=== PATIENT | female | born 1935 | race Caucasian/White ===

== ENCOUNTER → 2023-04-03 | Outpatient (CLI) | payer MEDICARE, SELFPAY ==
--- OUTSIDE RECORDS SUMMARY | 2023-04-03 17:46 | XMS RPT_ITS | CCD ---
Author Name Unknown Address [address] [place] [address] Organization [facility] Care Team Providers Care Call Center Nurse Name Role Phone KIAN PERSONAL COMPUTER SPECIALIST-GLOBAL IMPLEMENTATION MANAGER, KRISS Primary Care Physician Edwin PT, Abbey Unavailable Unavailable SEFFENS PERSONAL COMPUTER SPECIALIST-GLOBAL IMPLEMENTATION MANAGER, KRISS Primary Care Unavai lable SEFFENS PERSONAL COMPUTER SPECIALIST-GLOBAL IMPLEMENTATION MANAGER, KRISS Attending Unavai lable SEFFEJEFF PERSONAL COMPUTER SPECIALIST-GLOBAL IMPLEMENTATION MANAGER, KRISS Primary Care Unavai lable NOEMI LEDESMA, PRECIOUS Olmos Attending Unavail able SEFFENS PERSONAL COMPUTER SPECIALIST-GLOBAL IMPLEMENTATION MANAGER, KRISS Attending Unavai lable SEFFENS PERSONAL COMPUTER SPECIALIST-GLOBAL IMPLEMENTATION MANAGER, KRISS Primary Care Unavai lable SEFFENS PERSONAL COMPUTER SPECIALIST-GLOBAL IMPLEMENTATION MANAGER, KRISS Primary Care Unavai lable SEFFENS PERSONAL COMPUTER SPECIALIST-GLOBAL IMPLEMENTATION MANAGER, KRISS Attending Unavai lable SEFFENS PERSONAL COMPUTER SPECIALIST-GLOBAL IMPLEMENTATION MANAGER, KRISS Primary Care Unavai lable SEFFENS PERSONAL COMPUTER SPECIALIST-GLOBAL IMPLEMENTATION MANAGER, KRISS Attending Unavai lable Allergies Allergy Classification Reported Allergen(s) Allergy Type Date of Onset Reaction(s) Facility (4 sources) Cephalexin; Translations: [cephalexin] Drug Allergy Severe diarrhea (finding) [facility] (4 sources) Ciprofloxacin; Translations: [ciprofloxacin] Drug Allergy Diarrhea (finding) [facility] (4 sources) metroNIDAZOLE; Translations: [metronidazole] Drug Allergy Diarrhea (finding) [facility] Medications Current Medications Medication Drug Class(es) Dates Sig (Normalized) Sig (Original) calcium carbonate 600 mg oral capsule (4 sources) Start: 08-26-2013 Calcarb 600 mg oral tablet Dose : 600 mg = 1 tab(s), Oral, BID, # 60 tab(s), 0 Refill(s) Start Date: 08/26/13 Status: Ordered Haylee-C 1000 mg oral tablet (4 sources) Start: 07-29-2019 Haylee-C 1000 mg oral tablet Dose : 1,000 mg = 1 tab(s), Oral, Daily, # 30 tab(s), 0 Refill(s) Start Date: 07/29/19 Status: Ordered fexofenadine hydrochloride 180 mg oral tablet (4 sources) Histamine-1 Receptor Antagonist Start: 10-19-2018 Cat 24 Hour Allergy oral tablet Dose : 180 mg = 1 tab(s), Oral, Daily, # 30 tab(s), 0 Refill(s) Start Date: 10/19/18 Status: Ordered 120 actuat fluticasone propionate 0.11 mg/actuat metered dose inhaler (8 sources) Corticosteroid Start: 05-16-2022 End: 09-13-2022 take 2 puff(s) by inhalation twice daily Flovent HFA 110 mcg/inh inhalation aerosol 2 puff(s), Inhalation, BID, # 3 EA, 3 Refill(s), Pharmacy: [id number], 162.4, cm, 05/16/22 13:06:00 EDT, Height, kg, 05/16/22 13:06:00 EDT, Dosing Weight Start Date: 05/16/22 Stop Date: 09/13/22 Status: Ordered Completed/Discontinued Medications Medication Drug Class(es) Dates Sig (Normalized) Sig (Original) erythromycin 0.005 mg/mg ophthalmic ointment (1 source) Macrolide, Macrolide Antimicrobial Start: 10-16-2021 End: 10-26-2021 erythromycin 0.5% ophthalmic ointment Dose = 1 dc, Eyes, both, QID, 1 dc = 0.5 inch, X 10 day(s), # 3.5 gram(s), 0 Refill(s), Right corneal abrasion Start Date: 10/16/21 Stop Date: 10/26/21 Status: Ordered Problems Active Problems Problem Classification Problem Date Documented Date Episodic/Chronic Abdominal pain (4 sources) Abdominal pain 11-06-2019 Episodic Asthma (4 sources) Asthma 10-19-2018 Chronic Cardiac dysrhythmias (2 sources) Cardiac arrhythmia, unspecified; Translations: [Cardiac arrhythmia, unspecified] Onset: 10-01-2021 Chronic Diverticulosis and diverticulitis (4 sources) Diverticulitis of sigmoid colon 09-17-2020 Chronic Esophageal disorders (4 sources) Gastroesophageal reflux disease 10-19-2018 Chronic Heart valve disorders (4 sources) Irregular heart beat 10-01-2021 Episodic Mycoses (4 sources) Candidiasis of skin 10-19-2018 Episodic Osteoporosis (4 sources) Osteoporosis 10-19-2018 Chronic Other ear and sense organ disorders (2 sources) Does use hearing aid 05-16-2022 Episodic Superficial injury; contusion (1 source) Injury of eye region; Translations: [Injury of conjunctiva and corneal abrasion without foreign body, right eye, initial encounter] Onset: 10-16-2021 Episodic Unclassified (4 sources) Diverticulitis 10-19-2018 Unclassified (2 sources) Mass of left lower quadrant of abdomen 05-16-2022 Unclassified (2 sources) Patient encounter status 05-16-2022 Urinary tract infections (8 sources) Acute cystitis; Translations: [Urinary tract infectious disease] 01-29-2019 Episodic Past or Other Problems Problem Classification Problem Date Documented Da te Episodic/Chronic Fever of unknown origin (2 sources) Fever, unspecified; Translations: [Fever, unspecified] Onset: 10-01-2021 Episodic Malaise and fatigue (2 sources) Other fatigue; Translations: [Other fatigue] Onset: 10-01-2021 Episodic Results Test Name Value Interpretation Reference Range Facil ity Vital Signs Date Time Vital Sign Value Performing Clinician Faci lity 10-16-2021 19:21-0400 Body temperature 98.42 [degF] PRECIOUS FRANKLIN MD [facility] 10-16-2021 19:21-0400 Diastolic blood pressure 82 mm[Hg] PRECIOUS FRANKLIN MD [facility] 10-16-2021 19:21-0400 Heart rate 88 /min PRECIOUS FRANKLIN MD [facility] 10-16-2021 19:21-0400 Mean blood pressure 119 mm[Hg] PRECIOUS LYREN-SONDLES MD [facility] 10-16-2021 19:21-0400 Respiratory rate 18 /min PRECIOUS FRANKLIN MD [facility] 10-16-2021 19:21-0400 Systolic blood pressure 192 mm[Hg] PRECIOUS FRANKLIN MD [facility] Encounters Encounter Date Encounter Type Care Provider Facility Start: 06-03-2022 End: 06-04-2022 ambulatory KRISS SEFFENS PERSONAL COMPUTER SPECIALIST-GLOBAL IMPLEMENTATION MANAGER Facility:B Start: 06-03-2022 End: 06-03-2022 Patient encounter procedure KRISS SEFFENS PERSONAL COMPUTER SPECIALIST-GLOBAL IMPLEMENTATION MANAGER [facility] Start: 05-30-2022 End: 05-31-2022 ambulatory KRISS SEFFENS PERSONAL COMPUTER SPECIALIST-GLOBAL IMPLEMENTATION MANAGER Facility:B Start: 05-30-2022 End: 05-30-2022 Patient encounter procedure KRISS SEFFENS PERSONAL COMPUTER SPECIALIST-GLOBAL IMPLEMENTATION MANAGER [facility] Start: 10-16-2021 End: 10-16-2021 Emergency department patient visit KRISS SEFFENS PERSONAL COMPUTER SPECIALIST-GLOBAL IMPLEMENTATION MANAGER Facility:B Start: 10-16-2021 End: 10-16-2021 Emergency department patient visit PRECIOUS FRANKLIN MD [facility] Start: 10-01-2021 End: 10-06-2021 ambulatory KRISS SEFFENS PERSONAL COMPUTER SPECIALIST-GLOBAL IMPLEMENTATION MANAGER Facility:B Start: 10-01-2021 End: 10-05-2021 Outreach Lab KRISS SEFFENS PERSONAL COMPUTER SPECIALIST-GLOBAL IMPLEMENTATION MANAGER [facility] Procedures Date Procedure Procedure Detail Performing Clinician Cholecystectomy KRISS FF ENS PERSONAL COMPUTER SPECIALIST-GLOBAL IMPLEMENTATION MANAGER Fracture dislocation of shoulder joint (disorder) KRISS LANGSTON PERSONAL COMPUTER SPECIALIST-GLOBAL IMPLEMENTATION MANAGER Prosthetic arthroplasty of the hip KRISS LANGSTON PERSONAL COMPUTER SPECIALIST-GLOBAL IMPLEMENTATION MANAGER Immunizations Immunization Date Immunization Notes Care Provider Fa radha 04-28-2020 COVID-19, mRNA, LNP- S, PF, 100 mcg or 50 mcg dose; Translations: [Moderna COVID-19 Vaccine] KRISS LANGSTON PERSONAL COMPUTER SPECIALIST-GLOBAL IMPLEMENTATION MANAGER [facility] Payers Date Payer Category Payer Unknown [id number] 1935 Unknown [id number] [id number] 1933 Unknown [id number] [id number] [id number] 1933 Unknown [id number] [id number] [id number] 1933 Unknown [id number] [id number] [id number] 1933 Unknown [id number] 2.16.8 [id number] Social History Date Type Detail Facility Start: 10-19-2018 Tobacco smoking status Never s moked tobacco (finding) [facility] Sex Assigned At [facility] Functional Status Date Assessment Result Facility 10-16-2021 Functional Status ID band on, Allergy Band on, Call device within reach, Bed in low position, Wheels locked, Upper/Half-Length side-rails up, Phone within reach, personal items within reach, Safety level maintained [facility] Mental Status Date Assessment Result Facility 10-16-2021 Mental Status Oriented x 4 [facility] Clinical Notes 10-01-2021 to 06-03-2022 LaboratoryLaboratoryRadiologyLaboratoryRadiology Note Date & Type Note Facility 06-03-2022 Note ORIGINAL EXAMINATION: BONE DENSITOMETRY 06/03/2022 11:53 am TECHNIQUE: A bone density dual x-ray absorptiometry (DEXA) scan was performed of the lumbar spine and left hip. COMPARISON: 08/06/2018 HISTORY: ORDERING SYSTEM PROVIDED HISTORY: Reason for Exam: Osteoporosis, on Evista for more than 5 years FINDINGS: BMD (g/cm2) Lumbar Spine L1-L4: 0.840. T Score Lumbar Spine L1-L4: -1.9 BMD (g/cm2) Left Femoral Neck: 0.528. T Score Left Femoral Neck:-2.9 BMD (g/cm2) Left Hip: 0.673. T Score Left Hip: -2.2 BMD Change from previous Hip: -7.0% which is not significant. BMD Change from previous Lumbar spine: 8.7% which is not significant. IMPRESSION: Osteoporosis by WHO criteria. *By the World Health Organization criteria: (Comparing with young normal sex matched population) - Normal: T-score at or above -1 SD (standard deviation) - Osteopenia: T-score between -1 and -2.5 SD - Osteoporosis: T-score at or below -2.5 SD I have personally reviewed the images of this examination and agree with the resident's findings and interpretation. Interpreted by: Ruth Jewell Preliminary Report By: Bárbara Garces Electronically signed By Ruth Jewell Dictated Date: 06/03/2022 12:26:53 PM Prelim Date: 06/03/2022 5:02:08 PM Sign Date: 06/03/2022 5:02:08 PM [facility]ing [facility] 06-03-2022 Note ORIGINAL EXAMINATION: BONE DENSITOMETRY 06/03/2022 11:53 am TECHNIQUE: A bone density dual x-ray absorptiometry (DEXA) scan was performed of the lumbar spine and left hip. COMPARISON: 08/06/2018 HISTORY: ORDERING SYSTEM PROVIDED HISTORY: Reason for Exam: Osteoporosis, on Evista for more than 5 years FINDINGS: BMD (g/cm2) Lumbar Spine L1-L4: 0.840. T Score Lumbar Spine L1-L4: -1.9 BMD (g/cm2) Left Femoral Neck: 0.528. T Score Left Femoral Neck:-2.9 BMD (g/cm2) Left Hip: 0.673. T Score Left Hip: -2.2 BMD Change from previous Hip: -7.0% which is not significant. BMD Change from previous Lumbar spine: 8.7% which is not significant. IMPRESSION: Osteoporosis by WHO criteria. *By the World Health Organization criteria: (Comparing with young normal sex matched population) - Normal: T-score at or above -1 SD (standard deviation) - Osteopenia: T-score between -1 and -2.5 SD - Osteoporosis: T-score at or below -2.5 SD I have personally reviewed the images of this examination and agree with the resident's findings and interpretation. Interpreted by: Ruth Jewell Preliminary Report By: Bárbara Garces Electronically signed By Ruth Jewell Dictated Date: 06/03/2022 12:26:53 PM Prelim Date: 06/03/2022 5:02:08 PM Sign Date: 06/03/2022 5:02:08 PM Ordering Provider: [facility] 05-30-2022 Note ORIGINAL EXAMINATION: SOFT TISSUE ULTRASOUND 05/30/2022 10:23 am COMPARISON: 09/16/2020 HISTORY: ORDERING SYSTEM PROVIDED HISTORY: Reason for Exam: left lower abdominal bulge FINDINGS: Targeted ultrasound of the left lower quadrant in region of bulge. A loop of bowel is noted in the region of swelling . The loop demonstrates peristalsis on cine images. No soft tissue mass or hernia defect identified. IMPRESSION: Loop of bowel with peristalsis in the left lower quadrant in region of bulge/swelling. No hernia defect identified. Interpreted by: Mohan Patel Preliminary Report By: Mohan Patel Electronically signed By Mohan Patel Dictated Date: 05/30/2022 10:33:29 AM Prelim Date: 05/30/2022 10:35:34 AM Sign Date: 05/30/2022 10:35:34 AM Ordering Provider: [facility] 05-30-2022 Note ORIGINAL EXAMINATION: SOFT TISSUE ULTRASOUND 05/30/2022 10:23 am COMPARISON: 09/16/2020 HISTORY: ORDERING SYSTEM PROVIDED HISTORY: Reason for Exam: left lower abdominal bulge FINDINGS: Targeted ultrasound of the left lower quadrant in region of bulge. A loop of bowel is noted in the region of swelling . The loop demonstrates peristalsis on cine images. No soft tissue mass or hernia defect identified. IMPRESSION: Loop of bowel with peristalsis in the left lower quadrant in region of bulge/swelling. No hernia defect identified. Interpreted by: Mohan Patel Preliminary Report By: Mohan Patel Electronically signed By Mohan Patel Dictated Date: 05/30/2022 10:33:29 AM Prelim Date: 05/30/2022 10:35:34 AM Sign Date: 05/30/2022 10:35:34 AM Ordering Provider: KRISS LANGSTON [facility] 10-16-2021 Hospital Discharge instructions Patient Education 10/16/2021 19:28:12 Corneal Abrasion Corneal Abrasion You have received a scratch or scrape (abrasion) to your cornea. The cornea is the clear part in the front of the eye. This sensitive area is very painful when injured. You may make tears frequently, and your vision may be blurry until the injury heals. You may be sensitive to light. This part of the body heals quickly. You can expect the pain to go away within 24 to 48 hours. If the abrasion is large or deep, your doctor may apply an eye patch, although this is not always done. An antibiotic ointment or eye drops may also be used to prevent infection. Numbing drops may be used to relieve the pain temporarily so that your eyes can be examined. But these drops can t be prescribed for home use because that would prevent healing and lead to more serious problems. Also, if you can t feel your eye, there is a chance of accidentally injuring it further without knowing it. Home care A cold pack may be applied over the eye (or eye patch) for 20 minutes at a time, to reduce pain. To make a cold pack, put ice cubes in a plastic bag that seals at the top. Wrap the bag in a clean, thin towel or cloth. You may use acetaminophen or ibuprofen to control pain, unless another pain medicine was prescribed. Note: If you have chronic liver or kidney disease or have ever had a stomach ulcer or GI bleeding, talk with your doctor before using these medicines. Rest your eyes and don t read until symptoms are gone. If you use contact lenses, don t wear them until all symptoms are gone. If your vision is affected by the corneal abrasion or if an eye patch was applied, don t drive a motor vehicle or operate machinery until all symptoms are gone. You may have trouble judging distances using only one eye. If your eyes are sensitive to light, try wearing sunglasses, or stay indoors until symptoms go away. Follow-up care Follow up with your healthcare provider, or as advised. If no patch was put on your eye and the pain continues for more than 48 hours, you should have another exam. Contact your healthcare provider to arrange this. If your eye was patched and you were asked to remove the patch yourself, see your healthcare provider. Contact your healthcare provider if you still have pain after the patch is removed. If you were given a return appointment for patch removal and re-examination, be sure to keep the appointment. Leaving the patch in place longer than advised could be harmful. When to seek medical advice Call your healthcare provider right away if any of these occur. Increasing eye pain or pain that does not improve after 24 hours Discharge from the eye Increasing redness of the eye or swelling of the eyelids Worsening vision Symptoms get worse after the abrasion has healed [id number] [employer]. [address] [place] [address]. All rights reserved. This information is not intended as a substitute for professional medical care. Always follow your healthcare professional's instructions. Follow Up Care 10/16/2021 19:14:38 With:KRISS LANGSTON Address: [address] [place] [phone] When:2-4 days [facility] 10-16-2021 Note Discharge Instructions Thank you for allowing [facility] to assist you with your healthcare needs. The following is important discharge information regarding your hospital visit. Diagnosis from Today's Visit Right corneal abrasion Eye foreign body What to Do Next Instructions from Your Care Team No qualifying data available. Post Acute Orders No qualifying data available. You Need to Schedule the Following Appointments Follow Up with KRISS LANGSTON When Within 2-4 days Where: [address] [place] [phone] Allergies Cipro (Diarrhea) cephalexin (Severe diarrhea) metroNIDAZOLE (Diarrhea) Medications Please ask your primary doctor or pharmacist before taking any other medication not listed, including over the counter drugs, herbal medications, vitamins and or supplements as they may interact with your home medications. What How Much When Why Instructions Last Dose New erythromycin ophthalmic (erythromycin 0.5% ophthalmic ointment) 1 application Both eyes Four (4) times a day Right corneal abrasion Duration: 10 Days 1 dc = 0.5 inch Printed Prescription Unchanged ascorbic acid (Haylee-C 1000 mg oral tablet) 1 tab(s) by mouth Every day Unchanged calcium carbonate (Calcarb 600 mg oral tablet) 1 tab(s) by mouth Two (2) times a day Unchanged fexofenadine (Cat 24 Hour Allergy oral tablet) 1 tab(s) by mouth Every day Unchanged fluticasone (Flovent HFA 110 mcg/ inh inhalation aerosol) See instructions INHALE 2 PUFFS TWICE DAILY Unchanged fluticasone nasal (Flonase 50 mcg/ inh nasal spray) 1 spray(s) each nostril Two (2) times a day Unchanged raloxifene (raloxifene 60 mg oral tablet) See instructions TAKE 1 TABLET BY MOUTH EVERY DAY Please take this list to your next doctor s visit. Bring all medications you take, including over the counter medications, herbals and other supplements with you to your doctor s visit. Patients and families are reminded to discard old lists and to update any records with all medication providers or retail pharmacies. Education Materials Corneal Abrasion You have received a scratch or scrape (abrasion) to your cornea. The cornea is the clear part in the front of the eye. This sensitive area is very painful when injured. You may make tears frequently, and your vision may be blurry until the injury heals. You may be sensitive to light. This part of the body heals quickly. You can expect the pain to go away within 24 to 48 hours. If the abrasion is large or deep, your doctor may apply an eye patch, although this is not always done. An antibiotic ointment or eye drops may also be used to prevent infection. Numbing drops may be used to relieve the pain temporarily so that your eyes can be examined. But these drops can t be prescribed for home use because that would prevent healing and lead to more serious problems. Also, if you can t feel your eye, there is a chance of accidentally injuring it further without knowing it. Home care A cold pack may be applied over the eye (or eye patch) for 20 minutes at a time, to reduce pain. To make a cold pack, put ice cubes in a plastic bag that seals at the top. Wrap the bag in a clean, thin towel or cloth. You may use acetaminophen or ibuprofen to control pain, unless another pain medicine was prescribed. Note: If you have chronic liver or kidney disease or have ever had a stomach ulcer or GI bleeding, talk with your doctor before using these medicines. Rest your eyes and don t read until symptoms are gone. If you use contact lenses, don t wear them until all symptoms are gone. If your vision is affected by the corneal abrasion or if an eye patch was applied, don t drive a motor vehicle or operate machinery until all symptoms are gone. You may have trouble judging distances using only one eye. If your eyes are sensitive to light, try wearing sunglasses, or stay indoors until symptoms go away. Follow-up care Follow up with your healthcare provider, or as advised. If no patch was put on your eye and the pain continues for more than 48 hours, you should have another exam. Contact your healthcare provider to arrange this. If your eye was patched and you were asked to remove the patch yourself, see your healthcare provider. Contact your healthcare provider if you still have pain after the patch is removed. If you were given a return appointment for patch removal and re-examination, be sure to keep the appointment. Leaving the patch in place longer than advised could be harmful. When to seek medical advice Call your healthcare provider right away if any of these occur. Increasing eye pain or pain that does not improve after 24 hours Discharge from the eye Increasing redness of the eye or swelling of the eyelids Worsening vision Symptoms get worse after the abrasion has healed [phone] [employer] [address] [facility], [place] [address]. All rights reserved. This information is not intended as a substitute for professional medical care. Always follow your healthcare professional's instructions. Additional Information VACCINATE! IT SAVES LIVES! Members of the community who have not yet received the COVID-19 vaccine and would like to receive it can visit one of [facility] vaccine clinics. There are many vaccine clinic locations within the [facility]. For locations and available times, please visit [email or web address]. It is important to note that some COVID mobile vaccine clinics are held outdoors and may be canceled in rainy or stormy conditions. To learn more about pediatric vaccinations (ages 5-11), we invite you to visit the [facility] webpage. [email or web address] To learn more about the COVID-19 vaccine, we invite you to visit the [facility] website for a list of frequently asked questions. [email or web address] [facility] Patient Portal Access Instructions: Stay connected with your healthcare team and access your personal medical information anytime with the [email or web address] Patient Portal. If you would like a full copy of your medical records please contact the [facility] Medical Records Department Monday through Monday between 8a.m. and 4:30p.m. Please follow the directions below to access the portal: 1.Access the email account you provided upon registration to the hospital.2.Look for an invitation email from [facility].3.Open the email and access the invitation link: Accept Invitation to [email or web address].Fill in the required whiting to create your account. Sign into [email or web address] with your username and password that you created in the above steps to stay up to date. You can then view a summary of results, a summary of your visits, and the ability to download your summaries to your computer or send the information securely to a physician. Remember that your healthcare information is confidential, so carefully consider who you will allow to register on the [email or web address] Patient Portal for access to your information. You can also access the [email or web address] Patient Portal on the [employer] [employer] [facility] dc. Simply click on Health Records under Health Data and then click on the [facility] logo. HOW TO SAFELY DISPOSE OF PRESCRIPTION MEDICATIONS Please use one of the following methods to safely dispose of your unused medications. 1.Use a drug disposal kit: the drug disposal pouch allows you to safely discard your old and unused drugs. Ask your nurse to give you one when you are discharged.2.Visit a local take-back location: Many local pharmacies and police departments have programs that collect old and unwanted prescription drugs. Call your local pharmacy or go to [email or web address] to find one close to you.3.Make use of household items: Use cat litter or old coffee grounds to dispose medications if other options are not available. Mix your drugs with these household products, seal them in an airtight container and throw it into the garbage. Call [facility]: [phone] to be sure your drugs can be disposed of in this way. Some medicines may require a different approach.4.Never flush your medications down the toilet. IF YOU HAVE BEEN PRESCRIBED AN OPIOIDS FOR PAIN If you have been prescribed an opioid (such as hydrocodone, oxycodone or morphine), it is critical to understand the possible side effects and risks of opioid pain medications. Even when taken as directed, opioids can have several side effects including: Tolerance, meaning you might need to take more of a medication for the same pain relief. Nausea, vomiting and/or constipation. Sleepiness, dizziness, dry mouth, confusion, depression or itching. Physical dependence, meaning you have withdrawal symptoms when a medication is stopped ? this can develop within a few days. KNOW YOUR RESPONSIBILITIES It is important to know exactly how much and how often to take the opioid pain medications you are prescribed. Never take opioids in higher amounts or more often than prescribed. Do not combine opioids with alcohol or other drugs that cause drowsiness, such as benzodiazepines, also known as benzos, including diazepam and alprazolam, muscle relaxants or sleep aids. Never sell or share prescription opioids. This is illegal. Store opioids in a secure place and out of reach of others (including children, family, friends and visitors). The last page(s) of this document has been signed and retained as a CHART COPY Signatures Patient Education Materials Corneal Abrasion Medication Leaflets My discharge plan and instructions have been reviewed and explained to me and I,ALMA DELIA CARLSON understand my current condition and have read and understand these discharge instructions. I have received a written copy of the plan/instructions. If I have questions, I am aware that I should contact my doctor. Patient/Tube Winder Signature: Date/Time: Relationship to Patient: Witness Name/Signature: Date/Time: [facility] 10-16-2021 Note Discharge Instructions Thank you for allowing [facility] to assist you with your healthcare needs. The following is important discharge information regarding your hospital visit. Diagnosis from Today's Visit Right corneal abrasion Eye foreign body What to Do Next Instructions from Your Care Team No qualifying data available. Post Acute Orders No qualifying data available. You Need to Schedule the Following Appointments Follow Up with KRISS LANGSTON When Within 2-4 days Where: 0 [facility] [place] [address]- [phone] Allergies Cipro (Diarrhea) cephalexin (Severe diarrhea) metroNIDAZOLE (Diarrhea) Medications Please ask your primary doctor or pharmacist before taking any other medication not listed, including over the counter drugs, herbal medications, vitamins and or supplements as they may interact with your home medications. What How Much When Why Instructions Last Dose New erythromycin ophthalmic (erythromycin 0.5% ophthalmic ointment) 1 application Both eyes Four (4) times a day Right corneal abrasion Duration: 10 Days 1 dc = 0.5 inch Printed Prescription Unchanged ascorbic acid (Haylee-C 1000 mg oral tablet) 1 tab(s) by mouth Every day Unchanged calcium carbonate (Calcarb 600 mg oral tablet) 1 tab(s) by mouth Two (2) times a day Unchanged fexofenadine (Cat 24 Hour Allergy oral tablet) 1 tab(s) by mouth Every day Unchanged fluticasone (Flovent HFA 110 mcg/ inh inhalation aerosol) See instructions INHALE 2 PUFFS TWICE DAILY Unchanged fluticasone nasal (Flonase 50 mcg/ inh nasal spray) 1 spray(s) each nostril Two (2) times a day Unchanged raloxifene (raloxifene 60 mg oral tablet) See instructions TAKE 1 TABLET BY MOUTH EVERY DAY Please take this list to your next doctor s visit. Bring all medications you take, including over the counter medications, herbals and other supplements with you to your doctor s visit. Patients and families are reminded to discard old lists and to update any records with all medication providers or retail pharmacies. Education Materials Corneal Abrasion You have received a scratch or scrape (abrasion) to your cornea. The cornea is the clear part in the front of the eye. This sensitive area is very painful when injured. You may make tears frequently, and your vision may be blurry until the injury heals. You may be sensitive to light. This part of the body heals quickly. You can expect the pain to go away within 24 to 48 hours. If the abrasion is large or deep, your doctor may apply an eye patch, although this is not always done. An antibiotic ointment or eye drops may also be used to prevent infection. Numbing drops may be used to relieve the pain temporarily so that your eyes can be examined. But these drops can t be prescribed for home use because that would prevent healing and lead to more serious problems. Also, if you can t feel your eye, there is a chance of accidentally injuring it further without knowing it. Home care A cold pack may be applied over the eye (or eye patch) for 20 minutes at a time, to reduce pain. To make a cold pack, put ice cubes in a plastic bag that seals at the top. Wrap the bag in a clean, thin towel or cloth. You may use acetaminophen or ibuprofen to control pain, unless another pain medicine was prescribed. Note: If you have chronic liver or kidney disease or have ever had a stomach ulcer or GI bleeding, talk with your doctor before using these medicines. Rest your eyes and don t read until symptoms are gone. If you use contact lenses, don t wear them until all symptoms are gone. If your vision is affected by the corneal abrasion or if an eye patch was applied, don t drive a motor vehicle or operate machinery until all symptoms are gone. You may have trouble judging distances using only one eye. If your eyes are sensitive to light, try wearing sunglasses, or stay indoors until symptoms go away. Follow-up care Follow up with your healthcare provider, or as advised. If no patch was put on your eye and the pain continues for more than 48 hours, you should have another exam. Contact your healthcare provider to arrange this. If your eye was patched and you were asked to remove the patch yourself, see your healthcare provider. Contact your healthcare provider if you still have pain after the patch is removed. If you were given a return appointment for patch removal and re-examination, be sure to keep the appointment. Leaving the patch in place longer than advised could be harmful. When to seek medical advice Call your healthcare provider right away if any of these occur. Increasing eye pain or pain that does not improve after 24 hours Discharge from the eye Increasing redness of the eye or swelling of the eyelids Worsening vision Symptoms get worse after the abrasion has healed [id number] [employer]. [address] [place] [address], [place] [address]. All rights reserved. This information is not intended as a substitute for professional medical care. Always follow your healthcare professional's instructions. Additional Information VACCINATE! IT SAVES LIVES! Members of the community who have not yet received the COVID-19 vaccine and would like to receive it can visit one of [facility] vaccine clinics. There are many vaccine clinic locations within the [facility]. For locations and available times, please visit [email or web address]. It is important to note that some COVID mobile vaccine clinics are held outdoors and may be canceled in rainy or stormy conditions. To learn more about pediatric vaccinations (ages 5-11), we invite you to visit the [facility] webpage. [email or web address] To learn more about the COVID-19 vaccine, we invite you to visit the [facility] website for a list of frequently asked questions. [email or web address] [facility] Patient [facility] Access Instructions: Stay connected with your healthcare team and access your personal medical information anytime with the [facility] Patient Portal. If you would like a full copy of your medical records please contact the [facility] Medical Records Department Monday through Monday between 8a.m. and 4:30p.m. Please follow the directions below to access the portal: 1.Access the email account you provided upon registration to the hospital.2.Look for an invitation email from [facility].3.Open the email and access the invitation link: Accept Invitation to [email or web address].Fill in the required whiting to create your account. Sign into [email or web address] with your username and password that you created in the above steps to stay up to date. You can then view a summary of results, a summary of your visits, and the ability to download your summaries to your computer or send the information securely to a physician. Remember that your healthcare information is confidential, so carefully consider who you will allow to register on the [facility] Patient Portal for access to your information. You can also access the [email or web address] Patient Portal on the [employer]. Simply click on Health Records under Health Data and then click on the [employer] logo. HOW TO SAFELY DISPOSE OF PRESCRIPTION MEDICATIONS Please use one of the following methods to safely dispose of your unused medications. 1.Use a drug disposal kit: the drug disposal pouch allows you to safely discard your old and unused drugs. Ask your nurse to give you one when you are discharged.2.Visit a local take-back location: Many local pharmacies and police departments have programs that collect old and unwanted prescription drugs. Call your local pharmacy or go to http://dloHaiti.GCommerce/2N6Iz4z to find one close to you.3.Make use of household items: Use cat litter or old coffee grounds to dispose medications if other options are not available. Mix your drugs with these household products, seal them in an airtight container and throw it into the garbage. Call [facility]: [phone] to be sure your drugs can be disposed of in this way. Some medicines may require a different approach.4.Never flush your medications down the toilet. IF YOU HAVE BEEN PRESCRIBED AN OPIOIDS FOR PAIN If you have been prescribed an opioid (such as hydrocodone, oxycodone or morphine), it is critical to understand the possible side effects and risks of opioid pain medications. Even when taken as directed, opioids can have several side effects including: Tolerance, meaning you might need to take more of a medication for the same pain relief. Nausea, vomiting and/or constipation. Sleepiness, dizziness, dry mouth, confusion, depression or itching. Physical dependence, meaning you have withdrawal symptoms when a medication is stopped ? this can develop within a few days. KNOW YOUR RESPONSIBILITIES It is important to know exactly how much and how often to take the opioid pain medications you are prescribed. Never take opioids in higher amounts or more often than prescribed. Do not combine opioids with alcohol or other drugs that cause drowsiness, such as benzodiazepines, also known as benzos, including diazepam and alprazolam, muscle relaxants or sleep aids. Never sell or share prescription opioids. This is illegal. Store opioids in a secure place and out of reach of others (including children, family, friends and visitors). The last page(s) of this document has been signed and retained as a CHART COPY Signatures Patient Education Materials Corneal Abrasion Medication Leaflets My discharge plan and instructions have been reviewed and explained to me and I,ALMA DELIA CARLSON understand my current condition and have read and understand these discharge instructions. I have received a written copy of the plan/instructions. If I have questions, I am aware that I should contact my doctor. Patient/Tube Winder Signature: Date/Time: Relationship to Patient: Witness Name/Signature: Date/Time: [facility] 10-04-2021 Note . MICRO - Microbiology PROCEDURE: Urine Culture [*1] SOURCE: Urine, Clean Catch BODY SITE: COLLECTED DATE/TIME: 10/01/2021 13:17 EDT RECEIVED DATE/TIME: 10/02/2021 16:42 EDT START DATE/TIME: 10/02/2021 16:42 EDT FREE TEXT SOURCE: FINAL REPORTS Final Report [] Verified Date/Time/Personnel: 10/04/2021 10:05 EDT 10,000 - 50,000 cfu/ml Mixed growth consistent with normal urogenital caridad. PRELIMINARY REPORTS Preliminary Report [] Verified Date/Time/Personnel: 10/03/2021 11:18 EDT No growth to date Performing Locations *1: This test was performed at: [facility], [address] [place] [address], [id number] , [facility] ([place]) 10-01-2021 Evaluation + Plan note Future Scheduled TestsComplete Blood Count 10/01/21Complete Metabolic Panel 10/01/21 [facility] 10-01-2021 HCoV 229E RNA MICHAEL+non-probe Ql (Nph) Not Detected *NA* (10/01/21 1:17 PM) AH Auto Viro/Sero SS Evaluation + Plan note Future Appointments Appointment Date:06/03/2022 11:30:00 AM Scheduled Provider: Location:[facility] Appointment Type:BD Bone Density DEXA Axial Skeleton Appointment Date:06/12/2023 02:00:00 PM Scheduled Provider:KRISS LANGSTON Location:[facility] Appointment Type:PC Wellness Primetime Enhanced Future Scheduled TestsComplete Blood Count 10/01/21Vitamin D Level 05/16/22Complete Metabolic Panel 05/16/22Complete Metabolic Panel 10/01/21BD Bone Density DEXA Axial Skeleton 06/03/22US Soft Tissue Mass 05/27/22 [facility] Evaluation + Plan note Future Appointments Appointment Date:06/12/2023 02:00:00 PM Scheduled Provider:KRISS LANGSTON Location:[facility] Appointment Type:PC Wellness Primetime Enhanced Future Scheduled TestsComplete Blood Count 10/01/21Vitamin D Level 05/16/22Complete Metabolic Panel 05/16/22Complete Metabolic Panel 10/01/21US Soft Tissue Mass 05/27/22 [facility] Hospital course Narrative No data available for this section [facility] Hospital Discharge instructions No data available for this section [facility] Progress note No data available for this section [facility] Summary Purpose Family History No Family History Records Found Advance Directives No Advanced Directives Records Found Additional Source Comments Care Team (unrecognized sect ion and content) Care Team Personnel Name: Daquan Pineda PT Position: P3 Scheduling - Reporting Analyst Advanced Member Role: Other Name: KRISS LANGSTON Position: P4 Advanced Practice Nurse Med Service: Active Provider Member Role: Primary Care Physician Address: Address: [address] [place] [address] Care Team Related Persons Name: LIDIA HOPE Care Team Personnel Name: Daquan Pineda Clerk Abbey PT Position: P3 Scheduling - Reporting Analyst Advanced Member Role: Other Name: KRISS LANGSTON Position: P4 Advanced Practice Nurse Med Service: Active Provider Member Role: Primary Care Physician Address: Address: [address] [place] [address] Care Team Related Persons Name: LIDIA HPOE Patient Care team informatio n (unrecognized section and content) Care Team Personnel Name: Daquan Pineda PT Position: P3 Scheduling - Reporting Analyst Advanced Member Role: Other Name: KRISS LANGSTON Position: P4 Advanced Golf Ball Winder Member Role: Primary Care Physician Address: Address: [address] [place] [address] Care Team Related Persons Name: LIDIA HOPE Care Team Personnel Name: Daquan Pineda Clerk Abbey PT Position: P3 Scheduling - Reporting Analyst Advanced Member Role: Other Name: KRISS LANGSTON Position: P4 Advanced Golf Ball Winder Member Role: Primary Care Physician Address: Address: [address] [place] [address] Care Team Related Persons Name: LIDIA HOPE INFORMATION SOURCE (unrecogn ized section and content) FOR RECORDS PERTAINING TO PATIENTS WHO ARE OR HAVE BEEN ENROLLED IN A CHEMICAL DEPENDENCY/SUBSTANCEABUSE PROGRAM, SOME INFORMATION MAY BE OMITTED. This clinical summary was aggregated from multiple sources. Caution should be exercised in using it in the provision of clinical care. This summary normalizes information from multiple sources, and as a consequence, information in this document may materially change the coding, format and clinical context of patient data. In addition, data may be omitted in some cases. CLINICAL DECISIONS SHOULD BE BASED ON THE PRIMARY CLINICAL RECORDS. [facility] [employer], [facility]. provides no warranty or guarantee of the accuracy or completeness of information in this document.
== END | disposition home or self-care (01) ==
LOC: BFHLAB 16:22 → LABSPEC 16:23
PROVIDERS: PCP Nurse Practitioner Family; Visit Provider Nurse Practitioner Family
DX: N39.0 Urinary tract infection, site not specified (principal)
CPT/HCPCS: 87086; 87088

== ENCOUNTER → 2023-05-23 | Outpatient (CLI) | payer MEDICARE, SELFPAY | END | disposition home or self-care (01) | LOC: LABSPEC 16:48 | PROVIDERS: PCP Nurse Practitioner Family; Referring Provider Family Medicine; Visit Provider Family Medicine | DX: N39.0 Urinary tract infection, site not specified (principal) | CPT/HCPCS: 87077; 87086; 87088; 87186 ==

== ENCOUNTER → 2023-08-18 | Outpatient (CLI) | payer MEDICARE, SELFPAY ==
--- NOTE | 2023-08-18 14:33 | RAD_ITS ---
STUDY: X-RAY - LUMBAR SPINE REASON FOR EXAM: Female, 87 years old. Back pain. TECHNIQUE: 4 view(s) of the lumbar spine were obtained. COMPARISON: None FINDINGS: Osteopenia. Normal lumbar lordosis. No scoliosis. 6 mm of anterolisthesis of L5 on S1. Diffuse lower thoracic and lumbosacral facet sclerosis. Diffuse intervertebral disc space narrowing most marked in the lower thoracic spine and at L4-5 and to the greatest degree L5-S1. Marked vascular calcification and cholecystectomy clips. RAD/L/S Spine Min 4 Views IMPRESSION: Osteopenia with moderate lower thoracic and lumbosacral spondylosis as described, most marked at the lower thoracic spine and L4-L5 and L5-S1. Electronically Signed: Urban Doss MD at 15:23 EDT ,
--- NOTE | 2023-08-18 14:33 | RAD_ITS ---
STUDY: X-RAY - PELVIS AND BILATERAL HIPS REASON FOR EXAM: Female, 87 years old. Pain. TECHNIQUE: AP view of the pelvis.? 2 views of the right hip, and 2 views of the left hip were obtained. COMPARISON: Pelvis and right hip x-rays dated January 01, 2019. FINDINGS: Normal bowel gas pattern with air seen to the rectosigmoid and moderate amount of feces in the colon. Phleboliths. Osteopenia. Normal bilateral iliac wings, sacroiliac joints and visualized sacrum. Normal bilateral superior and inferior pubic rami. Normal pubic symphysis. Normal bilateral ischial tuberosities. Stable right total hip arthroplasty with cerclage wire with no change in position or alignment. Mild arthrosis of the left hip. RAD/Hips B/L min 2 views w/ Pelvis IMPRESSION: Stable uncomplicated right total hip arthroplasty. Stable mild arthrosis of the left hip. No other abnormality. Electronically Signed: Urban Doss MD at 15:21 EDT ,
[2023-08-18 17:43] LABS: Absolute Lymphocyte Count 1.89 X10^3/uL (0.83-4.51); Absolute Neutrophil Count 3.7 X10^3/uL (2.0-7.7); Basophil# 0.05 X10^3/uL; Basophil% 0.8 % (0-1); Eosinophil# 0.18 X10^3/uL; Eosinophils% 2.8 % (0-5); Hematocrit 43.9 % (37-47); Hemoglobin 14.3 g/dL (12.0-15.0); Lymphocyte # 1.89 X10^3/ul (0.83-4.51); Mean Corp Hgb Conc 32.6 g/dL (32-36); Mean Corpuscular Volume 92.2 fL (81-99); Mean Platelet Vol. 10.2 fl (6.2-12.0); Monocyte# 0.69 X10^3/uL; Monocyte% 10.6 % (0-10); NRBC Flagged by Analyzer 0 % (0-5); Neutrophil # 3.69 X10^3/uL (2.7-7.7); Neutrophil % 56.6 % (47-70); Platelet Count 264 K/mm3 (150-450); RBC Distribution Width CV 12.7 % (11.6-14.6); RBC Distribution Width SD 43.1 fl (35.1-43.9); Red Blood Count 4.76 M/mm3 (4.2-5.4); White Blood Count 6.5 K/mm3 (4.4-11.0)
[2023-08-18 18:23] LABS: ALB/GLOB Ratio 1.1 RATIO (0.9-2.4); AST(SGOT) 19 U/L (15-37); Alanine Aminotransfer ALT/SGPT 17 U/L (13-56); Albumin, Serum 3.5 g/dL (3.2-5.0); Alkaline Phosphatase 46 U/L (45-117); Anion Gap 9 (5-15); BUN 13 mg/dL (7-18); BUN/Creat Ratio 14.3 RATIO (10-20); Calcium,Total 8.9 mg/dL (8.5-10.1); Chloride 106 mmol/L (98-107); Cholesterol 172 mg/dL (200); Creatinine, Serum 0.91 mg/dL (0.55-1.02); EST Glomerular Filtration Rate 62 mL/min (>60); Est Glom Filt Rate - Afr Amer 75 mL/min (>60); Globulin 3.2 g/dL (2.2-4.2); Glucose 100 mg/dL (74-106); High Density Lipoprotein 54 mg/dL; Protein, Total 6.7 g/dL (6.4-8.2); Sodium Level 139 mmol/L (136-145); Triglycerides 86 mg/dL; Very Low Density Lipoprotein 17 mg/dL (5-40)
== END | disposition home or self-care (01) ==
LOC: MTLAB 14:31
PROVIDERS: PCP Nurse Practitioner Family; Referring Provider Nurse Practitioner Family; Visit Provider Nurse Practitioner Family
DX: M25.551 Pain in right hip (principal); R42 Dizziness and giddiness; I10 Essential (primary) hypertension; E78.5 Hyperlipidemia, unspecified; Z91.81 History of falling
CPT/HCPCS: 36415; 72110; 73521; 80053; 80061; 85025

== ENCOUNTER → 2023-08-25 | Outpatient (CLI) | payer MEDICARE, SELFPAY ==
--- NOTE | 2023-08-25 14:33 | RAD_ITS ---
STUDY: X-RAY CHEST REASON FOR EXAM: Female, 87 years old. Chest pain. TECHNIQUE: Frontal and lateral views of the chest. COMPARISON: Chest CT dated June 07, 2018 FINDINGS: The lungs are clear and expanded. There is no demonstrated pleural abnormality. Borderline cardiomegaly. Normal mediastinum and lisa. Prominent central pulmonary arteries. Aortic tortuosity with calcification. Normal visualized thoracic spine. Normal visualized ribs, clavicles, and shoulders. No abnormality of the visualized soft tissue structures of the upper abdomen. RAD/Chest PA and Lateral IMPRESSION: Stable borderline cardiomegaly with no acute or active cardiopulmonary disease. Electronically Signed: Urban Doss MD at 15:10 EDT ,
--- NOTE | 2023-08-25 14:33 | RAD_ITS ---
STUDY: X-RAY - RIGHT HAND REASON FOR EXAM: Female, 87 years old. Pain. TECHNIQUE: 3 view(s) of the hand. COMPARISON: None. FINDINGS: Osteopenia. Mild arthrosis of the radiocarpal articulation. Mild arthrosis of the radio-ulnar articulation. Moderate arthrosis of the radial carpal row of the wrist. Bone island in the proximal and radial aspect of the first metacarpal. Moderate arthrosis of the first CMC joint. Moderate arthrosis of the MCP and IP joints. Normal soft tissues. RAD/Hand Min 3 Views IMPRESSION: Osteopenia with diffuse mild osteoarthritic changes. No acute abnormality or erosive changes. Electronically Signed: Urban Doss MD at 15:11 EDT ,
== END | disposition home or self-care (01) ==
LOC: MTRAD 14:30
PROVIDERS: PCP Nurse Practitioner Family; Visit Provider Nurse Practitioner Family
DX: R07.89 Other chest pain (principal); M79.641 Pain in right hand; Z91.81 History of falling
CPT/HCPCS: 71046; 73130